=== PATIENT | female | born 2000 | race Caucasian/White ===

== ENCOUNTER 2021-12-24 00:37 | Emergency (ER) | payer OTHER ==
[~2021-12-24] VITALS: Ht 167.6 cm; Wt 72.7 kg
[2021-12-24] MEDS ORDERED: KETOROLAC 30 MG/ML 1ML VIAL IV ONE (02:30)
[2021-12-24] MEDS ORDERED: ISOVUE-370 76% 100ML VIAL As Ordered ONE (02:54)
[2021-12-24 04:08] VITALS: BP 107/64
== END 2021-12-24 05:20 | disposition home or self-care (01) ==
LOC: M ED 00:37
DX: N83.202 Unspecified ovarian cyst, left side (principal)
CPT/HCPCS: 74177; 80047; 96374; 99284; J1885; Q9967

== ENCOUNTER 2022-02-19 21:13 | Emergency (ER) | payer OTHER ==
[~2022-02-19] VITALS: Ht 170.2 cm; Wt 77.2 kg
[2022-02-19 21:14] VITALS: BP 119/68
== END 2022-02-20 02:42 | disposition left against medical advice (07) ==
LOC: M ED 21:13
DX: Z53.21 Procedure and treatment not carried out due to patient leaving prior to being seen by health care provider (principal)

== ENCOUNTER → 2023-01-31 | Outpatient (CLI) | payer OTHER | LOC: M RAD 10:46 | PROVIDERS: ATTEND Ophthalmology | DX: H54.62 Unqualified visual loss, left eye, normal vision right eye (principal) ==

== ENCOUNTER → 2023-04-03 | Outpatient (CLI) | payer OTHER | LOC: M RAD 14:13 | PROVIDERS: ATTEND Obstetrics & Gynecology | DX: O34.531 Maternal care for retroversion of gravid uterus, first trimester (principal); Z3A.01 Less than 8 weeks gestation of pregnancy ==

== ENCOUNTER → 2023-11-10 | Outpatient (CLI) | payer OTHER ==
[~2023-11-10] VITALS: Ht 170.2 cm; Wt 93.0 kg
[~2023-11-10] MED LIST: PRENTAB9 PO
[2023-11-10 11:26] VITALS: BP 125/74
== END ==
LOC: M LDO 11:10
PROVIDERS: ATTEND Obstetrics & Gynecology
DX: O36.8130 Decreased fetal movements, third trimester, not applicable or unspecified (principal); Z3A.38 38 weeks gestation of pregnancy
CPT/HCPCS: 59025; 76815; G0463

== ENCOUNTER 2023-11-13 10:22 | Outpatient (CLI) | payer OTHER ==
[~2023-11-13] VITALS: Ht 170.2 cm; Wt 93.5 kg
[2023-11-13 10:39] VITALS: BP 118/71
[2023-11-13] MEDS ORDERED: HOME MED LIST COMPLETE! XX SCH (10:40)
== END 2023-11-13 11:58 | disposition home or self-care (01) ==
LOC: M LDO 10:22
PROVIDERS: ATTEND Advanced Practice Midwife
DX: O36.8130 Decreased fetal movements, third trimester, not applicable or unspecified (principal); Z3A.38 38 weeks gestation of pregnancy
CPT/HCPCS: 59025; G0463

== ENCOUNTER 2023-11-22 11:42 | Outpatient (CLI) | payer OTHER ==
[~2023-11-22] VITALS: Ht 170.2 cm; Wt 92.0 kg
[2023-11-22] MEDS ORDERED: BENA25CA4 PO (12:05)
[2023-11-22] MEDS ORDERED: ACET-897 PO (12:05)
[2023-11-22] MEDS ORDERED: OMEP-173 PO (12:07)
[2023-11-22] MEDS ORDERED: HOME MED LIST COMPLETE! XX SCH (12:10)
[2023-11-22 12:13] VITALS: BP 139/78; O2SAT 97
[2023-11-22] MEDS: LACTATED RINGER'S 1000 ML IV STA (12:56)
[2023-11-22 13:07] LABS: HEMATOCRIT 35.8 % (36.0-47.0); MEAN CORPUSCULAR HEMOGLOBIN 28.5 pg (27.0-33.0); MEAN CORPUSCULAR HGB CONC 33.5 g/dl (32.0-36.5); PLATELET COUNT, AUTOMATED 172 10^3/uL (150-450); RED BLOOD COUNT 4.21 10^6/uL (4.00-5.40)
[2023-11-22] MEDS: ONDANSETRON 4MG 2ML VIAL IV PRN (13:07)
[2023-11-22 13:23] VITALS: BP 111/65
[2023-11-22 13:31] LABS: ALBUMIN 2.9 G/DL (3.2-5.2); ALKALINE PHOSPHATASE 144 U/L (46-116); ALT/SGPT 17 U/L (7.0-40); AST/SGOT 20 U/L (<34); BILIRUBIN,TOTAL 0.6 MG/DL (0.3-1.2); BLOOD UREA NITROGEN 6 MG/DL (9-23); CALCIUM LEVEL 8.5 MG/DL (8.5-10.1); CARBON DIOXIDE LEVEL 23 MMOL/L (20-31); CHLORIDE LEVEL 104 MMOL/L (98-107); CREATININE FOR GFR 0.62 MG/DL (0.55-1.30); GLOMERULAR FILTRATION RATE > 60.0 (>60); GLUCOSE, FASTING 85 MG/DL (60-100); POTASSIUM SERUM 3.6 MMOL/L (3.5-5.1); SODIUM LEVEL 136 MMOL/L (136-145)
[2023-11-22 13:41] VITALS: BP 113/68
[2023-11-22] MEDS: ACETAMINOPHEN 500 MG TAB PO ONE (14:09)
[2023-11-22] MEDS: D5W/LR 1,000 ML IV SCH (14:17)
[2023-11-22] MEDS: OSELTAMIVIR 6 MG/ML SUSP PO SCH (14:47)
== END 2023-11-22 15:07 | disposition home or self-care (01) ==
LOC: M LDO 11:42
PROVIDERS: ATTEND Advanced Practice Midwife
DX: O99.513 Diseases of the respiratory system complicating pregnancy, third trimester (principal); J10.89 Influenza due to other identified influenza virus with other manifestations; Z3A.39 39 weeks gestation of pregnancy
CPT/HCPCS: 59025; 80053; 85027; 86780; 86850; 86900; 86901; 87486; 87581; 87633; 87798; 96374; G0463; J2405

== ENCOUNTER 2023-11-22 20:41 | Inpatient (IN) | payer OTHER ==
[~2023-11-22] VITALS: Ht 170.2 cm; Wt 93.0 kg
[~2023-11-22 20:41] MED LIST changes: +ACET-897 PO; +BENA25CA4 PO; +OMEP-173 PO
[2023-11-22 20:58] VITALS: BP 136/83
[2023-11-22] MEDS ORDERED: HOME MED LIST COMPLETE! XX SCH (21:20)
[2023-11-22] MEDS ORDERED: CARBOPROST TROMETHAMINE 250 MCG/ML AMP IM PRN (22:00)
[2023-11-22] MEDS ORDERED: OXYTOCIN DRIP 30 UNITS in IV 1 EA IV PRN (22:00)
[2023-11-22] MEDS ORDERED: LIDOCAINE 1% MDV 20ML VIAL INFIL PRN (22:00)
[2023-11-22] MEDS ORDERED: ACETAMINOPHEN 500 MG TAB PO PRN (22:15)
[2023-11-22 22:51] VITALS: BP 128/86
[2023-11-22] MEDS: BUTORPHANOL 2 MG/ML 1ML VIAL IV PRN (22:53)
[2023-11-22] MEDS: miSOPROStol 50MCG 1/2 TABLET BUC PRN (22:53)
[2023-11-22] MEDS: PROMETHAZINE 25MG/ML 1ML VIAL IV PRN (22:54)
[2023-11-22 23:05] LABS: BASO % 0.4 % (0.0-1.0); EOS % 0.2 % (0.0-3.0); HEMATOCRIT 34.2 % (36.0-47.0); HEMOGLOBIN 11.5 g/dl (12.0-15.5); LYMPH # 1.1 10^3/uL (1.5-5.0); LYMPH % 20.5 % (24.0-44.0); MEAN CORPUSCULAR HEMOGLOBIN 28.5 pg (27.0-33.0); MEAN CORPUSCULAR HGB CONC 33.6 g/dl (32.0-36.5); MEAN CORPUSCULAR VOLUME 84.7 fl (80.0-96.0); MONO # 0.6 10^3/uL (0.0-0.8); MONO % 11.4 % (2.0-8.0); NEUTROPHILS # 3.6 10^3/uL (1.5-8.5); NEUTROPHILS % 66.9 % (36.0-66.0); PLATELET COUNT, AUTOMATED 168 10^3/uL (150-450); RED BLOOD COUNT 4.04 10^6/uL (4.00-5.40); WHITE BLOOD COUNT 5.3 10^3/uL (4.0-10.0)
[2023-11-22 23:21] VITALS: BP 133/81
[2023-11-22 23:51] VITALS: BP 130/82
[2023-11-23] VITALS (44 sets, daily range): BP systolic 106–150; BP diastolic 55–94; TEMP 99.1; O2SAT 97–98
[2023-11-23] MEDS ORDERED: OXYTOCIN DRIP 30 UNITS in IV 1 EA IV SCH (02:10)
[2023-11-23] MEDS ORDERED: ePHEDrine SULFATE 25 MG/5 ML(5MG/ML) SYRINGE IVP PRN (02:45)
[2023-11-23] MEDS ORDERED: diphenhydrAMINE 50MG/ML VIAL IV PRN (02:45)
[2023-11-23] MEDS ORDERED: LR 500 ML IV PRN (02:45)
[2023-11-23] MEDS ORDERED: NALOXONE INJ 0.4MG/1ML VIAL IV PRN (02:45)
[2023-11-23] MEDS ORDERED: EPIDURAL/PCA KEYS XX PRN (02:45)
[2023-11-23] MEDS ORDERED: ONDANSETRON 4MG 2ML VIAL IV PRN (02:45)
[2023-11-23] MEDS: FENTANYL/ROPIVACAINE/NACL BAG 100 ML EPIDURAL SCH (03:30)
[2023-11-23] MEDS: PENICILLIN G POTASSIUM 5 MU IV 5 MU in D5W MINI-BAG PLUS 100 ML IV STA (03:35)
[2023-11-23] MEDS: OSELTAMIVIR PHOSPHATE 75 MG CAP (TAMIFLU) PO SCH ×2 (07:08→20:23)
[2023-11-23] MEDS: LR 1,000 ML IV SCH (07:09)
[2023-11-23] MEDS: PEN G POT 3,000,000 UNIT/50 ML 3,000,000 UNIT in IV 1 EA IV SCH (07:28)
[2023-11-23] MEDS: OXYTOCIN DRIP 30 UNITS in IV 1 EA IV PRN (08:40)
[2023-11-23] MEDS: TRANEXAMIC ACID INJection 1,000 MG in NS 100 ML IV PRN (08:46)
[2023-11-23] MEDS: METHYLERGONOVINE MALEATE 0.2MG/ML 1ML VIAL IM PRN (08:46)
[2023-11-23] MEDS ORDERED: IBUPROFEN 800 MG TAB PO PRN (08:55)
[2023-11-23] MEDS ORDERED: RHOGAM 300MCG (1500IU) INJ IM SCH (08:55)
[2023-11-23] MEDS ORDERED: METHYLERGONOVINE MALEATE 0.2 MG TAB PO PRN (08:55)
[2023-11-23] MEDS ORDERED: ACETAMINOPHEN TAB 650MG DOSE (2X325MG) PO PRN (08:55)
[2023-11-23] MEDS ORDERED: METOCLOPRAMIDE INJ 10MG/2ML VIAL IV PRN (08:55)
[2023-11-23] MEDS ORDERED: CALCIUM CARBONATE 500 MG CHEW U/D PO PRN (08:55)
[2023-11-23] MEDS ORDERED: MOM 30ML SUSPENSION UDC PO PRN (08:55)
[2023-11-23] MEDS: OXYTOCIN DRIP 30 UNITS in IV 1 EA IV SCH ×2 (09:00→09:45)
[2023-11-23] MEDS ORDERED: LR 1,000 ML IV SCH (09:00)
[2023-11-23] MEDS: PRENATAL VITAMINS CHEWABLE TABLET PO SCH (09:00)
[2023-11-23] MEDS: ONDANSETRON 4MG 2ML VIAL IV PRN (09:28)
[2023-11-23] MEDS: DIBUCAINE 1% OINTMENT 30GM TOP PRN (09:41)
[2023-11-23] MEDS: ANUSOL HC CREAM 30GM TOP PRN (09:41)
[2023-11-23] MEDS: DOCUSATE SODIUM 100MG CAPSULE PO PRN (13:24)
[2023-11-23] MEDS: IBUPROFEN 600MG TAB PO PRN (13:24)
[2023-11-24 06:00] VITALS: BP 101/64; O2SAT 99
[2023-11-24 18:00] VITALS: BP 121/73; O2SAT 98
[2023-11-24] MEDS: ACETAMINOPHEN 500 MG TAB PO PRN (20:22)
[2023-11-25 05:52] VITALS: BP 117/70; O2SAT 99
[2023-11-25] MEDS ORDERED: COLA100C5 PO (08:22)
[2023-11-25] MEDS ORDERED: ACET1TAB55 PO (08:22)
[2023-11-25] MEDS ORDERED: IBUP-1022 PO (08:22)
[2023-11-25] MEDS ORDERED: MEASLES,MUMPS,RUBELLA VACCINE INJ (MMR-II) SC.IMMUN ONE (09:00)
== END 2023-11-25 10:40 | disposition home or self-care (01) | DRG 807 ==
LOC: M LDO 20:41 → M LDI 21:52 → M OBS 11-23 12:52
PROVIDERS: ADMIT Advanced Practice Midwife; ATTEND Advanced Practice Midwife
PROC: 3E0P7VZ Introduction of Hormone into Female Reproductive, Via Natural or Artificial Opening (ICD-10-PCS; 2023-11-22)
PROC: 10E0XZZ Delivery of Products of Conception, External Approach (ICD-10-PCS; principal; 2023-11-23)
PROC: 0HQ9XZZ Repair Perineum Skin, External Approach (ICD-10-PCS; 2023-11-23)
DX: O46.93 Antepartum hemorrhage, unspecified, third trimester (principal); Z37.0 Single live birth; Z3A.39 39 weeks gestation of pregnancy; O26.00 Excessive weight gain in pregnancy, unspecified trimester; O70.0 First degree perineal laceration during delivery; O69.82X0 Labor and delivery complicated by other cord entanglement, without compression, not applicable or unspecified; O99.824 Streptococcus B carrier state complicating childbirth; O36.0190 Maternal care for anti-D [Rh] antibodies, unspecified trimester, not applicable or unspecified